=== PATIENT | female | born 1980 | race Caucasian/White ===

== ENCOUNTER 2025-09-09 16:23 | Emergency (ER) | payer MEDICAID, MEDICARE ==
[~2025-09-09] VITALS: Ht 157.5 cm; Wt 44.6 kg
[2025-09-09 16:36] VITALS: TEMP 97.6
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
[2025-09-09 16:52] VITALS: BP 149/111; PULSE 97; RESP 16; O2SAT 98
== END 2025-09-09 16:53 | disposition home or self-care (01) ==
LOC: ER 16:24
DX: Z02.89 Encounter for other administrative examinations (principal); G89.29 Other chronic pain; F15.90 Other stimulant use, unspecified, uncomplicated; Z59.00 Homelessness unspecified; Z56.0 Unemployment, unspecified; Z72.89 Other problems related to lifestyle; Z98.890 Other specified postprocedural states; V89.2XXA Person injured in unspecified motor-vehicle accident, traffic, initial encounter; Y93.89 Activity, other specified; Y92.89 Other specified places as the place of occurrence of the external cause; Y99.8 Other external cause status
CPT/HCPCS: 99283